=== PATIENT | male | born 1985 | race Caucasian/White ===

== ENCOUNTER 2024-01-16 12:06 | Day surgery (SDC) | payer OTHER ==
[~2024-01-16] VITALS: Ht 175.3 cm; Wt 71.2 kg
[2024-01-16] MEDS: NS 1,000 ML IV ONE (12:45)
[2024-01-16] MEDS ORDERED: CLAR10CA3 PO (12:51)
[2024-01-16] MEDS ORDERED: LIDOCAINE 2% 100MG/5ML SDV (FOR ANES.) As Ordered ONE (14:24)
[2024-01-16] MEDS ORDERED: propofoL 200 MG/20 ML VIAL As Ordered ONE (14:27)
[2024-01-16 15:16] VITALS: TEMP 99.1
[2024-01-16 15:29] VITALS: BP 120/81; O2SAT 95
== END 2024-01-16 15:35 | disposition home or self-care (01) ==
LOC: M OPP 12:06
PROVIDERS: ATTEND Internal Medicine Gastroenterology
DX: R12 Heartburn (principal); R93.3 Abnormal findings on diagnostic imaging of other parts of digestive tract; K22.2 Esophageal obstruction; F17.220 Nicotine dependence, chewing tobacco, uncomplicated; F12.10 Cannabis abuse, uncomplicated; F41.9 Anxiety disorder, unspecified; Z88.1 Allergy status to other antibiotic agents